=== PATIENT | male | born 2000 | race Caucasian/White ===

== ENCOUNTER 2018-01-05 22:52 | Emergency (ER) | payer SELFPAY ==
--- NOTE | 2018-01-05 23:25 | ED Physician Documentation ---
History of Present Illness - Stated complaint Stated Complaint: CHEST PX - Chief complaint Chief Complaint: Cardiac - History obtained from History obtained from: Patient - History of Present Illness Timing: How many hours ago (2) Pain level max: 4 Pain level now: 4 Improved by: rest Worsened by: nothing - Additonal information Additional information: Patient is a 17-year-old male who presents to the emergency department with chest tightness after he was eating granola earlier tonight, accidentally inhaled on it and choked. Since that time he has felt a tightness in his chest. Review of Systems Ten Systems: 10 systems reviewed and negative Constitutional: denies: Fever, Chills Ears: denies: Ear pain Nose: denies: Rhinorrhea / runny nose, Congestion Throat: denies: Sore throat Cardiac: denies: Chest pain / pressure Respiratory: denies: Cough, Hemoptysis, Wheezing GI: denies: Abdominal Pain, Nausea, Vomiting, Diarrhea Skin: denies: Rash Musculoskeletal: denies: Neck pain, Back pain Neurologic: denies: Focal weakness, Numbness, Headache PD PAST MEDICAL HISTORY - Past Medical History Past Medical History: No - Past Surgical History Past Surgical History: No - Allergies Allergies/Adverse Reactions: Allergies Allergy/AdvReac Type Severity Reaction Status Date / Time No Known Drug Allergies Allergy Verified 01/05/18 23:02 - Living Situation Living Arrangement: reports: At home - Social History Does the pt drink ETOH?: No - Family History Family history: reports: Non contributory PD ED PE NORMAL - Vitals Vital signs reviewed: Yes - General General: Alert and oriented X 3, No acute distress - HEENT HEENT: Moist mucous membranes - Neck Neck: Supple, no meningeal sign - Cardiac Cardiac: RRR, Strong equal pulses - Respiratory Respiratory: No respiratory distress, Clear bilaterally - Abdomen Abdomen: Soft, Non tender, Non distended - Derm Derm: Warm and dry - Extremities Extremities: No edema, No calf tenderness / cord - Neuro Neuro: Alert and oriented X 3 - Psych Psych: Normal mood, Normal affect Results - Vitals Vitals: Vital Signs - 24 hr 01/05/18 01/05/18 01/06/18 22:58 23:39 00:43 Temperature 37.5 C Heart Rate 119 H 111 H 92 Respiratory 20 20 15 Rate Blood Pressure 139/80 H 144/81 H 124/64 O2 Saturation 100 99 99 Oxygen O2 Source Room air - EKG (time done) 1808 Rate: Rate (enter#) (115) Rhythm: Sinus tachycardia Sunburst: Normal Intervals: Normal [place] QRS: Normal Ischemia: Non specific changes - Rads (name of study) cxr Radiology: Prelim report reviewed, EMP read contemporaneously, See rad report (No acute abnormality) PD MEDICAL DECISION MAKING - ED course Complexity details: reviewed results, re-evaluated patient, considered differential, d/w patient ED course: Patient is a 17-year-old male who presents to the emergency department with chest tightness after coughing on granola earlier tonight. Normal chest x-ray. No evidence of air trapping. No evidence of pneumothorax. Symptoms gradually improved in the emergency department. No evidence of acute coronary syndrome. No evidence of pulmonary embolism. No calf pain or tenderness. No recent immobilization. Patient counseled regarding signs and symptoms for which I believe and urgent re-evaluation would be necessary. Patient with good understanding of and agreement to plan and is comfortable going home at this time This document was made in part using voice recognition software. While efforts are made to proofread this document, sound alike and grammatical errors may occur. - Sepsis Event Vital Signs: Vital Signs - 24 hr 01/05/18 01/05/18 01/06/18 22:58 23:39 00:43 Temperature 37.5 C Heart Rate 119 H 111 H 92 Respiratory 20 20 15 Rate Blood Pressure 139/80 H 144/81 H 124/64 O2 Saturation 100 99 99 Oxygen O2 Source Room air Departure - Departure Disposition: 01 Home, Self Care Clinical Impression: Chest pain Qualifiers: Chest pain type: unspecified Qualified Code(s): R07.9 - Chest pain, unspecified Condition: Good Instructions: ED Chest Pain Atypical Unkn Cause Follow-Up: Judson Duvall MD [Primary Care Provider] - Within 1 week Comments: Return if you worsen. This should improve over the next few days. Discharge Date/Time: 01/06/18 00:44
--- NOTE | 2018-01-06 00:07 | XRAY Report ---
Reason: chest pain s/p coughing Procedure Date: 01/05/2018 Accession Number: [id number] / [id number] Procedure: XR - Chest 2 View X-Ray CPT Code: 58180 FULL RESULT: EXAM: CHEST RADIOGRAPHY EXAM DATE: 01/05/2018 11:53 PM. CLINICAL HISTORY: Chest pain s/p coughing. COMPARISON: None. TECHNIQUE: 2 views. FINDINGS: Lungs/Pleura: No focal opacities evident. No pleural effusion. No pneumothorax. Normal volumes. Mediastinum: Heart and mediastinal contours are unremarkable. Other: None. IMPRESSION: Normal 2-view chest radiography. [facility]
[2018-01-06 00:44] VITALS: BP 124/64
== END 2018-01-06 00:44 | disposition home or self-care (01) ==
LOC: ED 22:52
DX: R07.9 Chest pain, unspecified (principal); R00.0 Tachycardia, unspecified
CPT/HCPCS: 71046; 93005; 99283